=== PATIENT | female | born 1975 | race Caucasian/White ===

== ENCOUNTER 2024-11-26 23:03 | Observation (INO) | payer MEDICARE, SELFPAY ==
[2024-11-26 16:58] VITALS: BP 143/92
[2024-11-26 17:26] LABS: % Basophils 0.4 % (0-2); % Eosinophils 0.6 % (0-6); % Immature Granulocytes 0.5 % (0-0.5); % Lymphocytes 16.4 % (20.5-51.1); % Monocytes 8.4 % (1.7-9.3); % Neutrophils 73.7 % (42.2-75.2); Absolute Eosinophils 0.1 10^3/uL (0-0.7); Absolute Lymphocytes 1.3 10^3/uL (1.2-3.4); Absolute Monocytes 0.7 10^3/uL (0.1-0.6); Absolute Neutrophils 5.8 10^3/uL (1.4-6.5); Hematocrit 35.8 % (37.0-47.0); Hemoglobin 12.3 g/dL (12.0-16.0); Mean Corp Hgb Conc. 34.4 g/dL (33.0-37.0); Mean Corpuscular Hgb 31.1 pg (27.0-31.0); Mean Corpuscular Volume 90.6 fL (81.0-99.0); Mean Platelet Volume 9.3 fL (7.4-10.4); Nucleated Red Blood Cells % 0 %; Platelet Count 273 10^3/uL (130-400); Red Blood Cell Count 3.95 10^6/uL (4.20-5.40); Red Cell Dist. Width 11.7 % (11.5-14.5); White Blood Cell Count 7.9 10^3/uL (4.8-10.8)
[2024-11-26 17:30] LABS: Urine Albumin 1+ (Neg - Trace); Urine Bilirubin Negative (Negative); Urine Character Clear (Clear); Urine Color Yellow; Urine Glucose Negative (Negative); Urine Ketone Negative (Negative); Urine Leukocyte Negative (Negative); Urine Nitrite Negative (Negative); Urine Occult Blood 4+ (Negative); Urine Urobilinogen Negative (Neg - 1+)
[2024-11-26 17:42] LABS: Urine Squamous Cell 0-2 /LPF (Few)
[2024-11-26 17:43] LABS: Urine Bacteria Few (Negative); Urine White Cell 0-2 /HPF (0-5)
[2024-11-26 18:04] LABS: ALT (SGPT) 408 U/L (0-35); AST (SGOT) 617 U/L (14-36); Albumin 4.2 g/dl (3.5-5.0); Alkaline Phosphatase 100 U/L (38-126); Blood Urea Nitrogen 13 mg/dl (7-17); Calcium 10.9 mg/dl (8.4-10.2); Carbon Dioxide 28 mmol/L (22-30); Chloride 102 mmol/L (98-107); Glucose 105 mg/dl (70-99); Lipase 132 U/L (23-300); Potassium 3.8 mmol/L (3.5-5.1); Sodium 136 mmol/L (135-145); Total Bilirubin 1.4 mg/dl (0.2-1.3); eGFR > 60.00
--- NOTE | 2024-11-26 19:40 | ED.GENMED ---
History of Present Illness
General
Chief Complaint: Flank Pain
Source: patient
Exam Limitations: none
Time Seen by Provider: 11/26/24 19:30
Nursing documentation reviewed up to this point in time: agreed with
History of Present Illness
History of Present Illness:
Patient is a 49-year-old female who presents today for evaluation. Patient started last night with pain in the middle of her back which radiates and wraps around to her epigastric area. She does have indigestion and feels very nauseous with this.
She denies any injury but does report it hurts when she walks. She is nauseous but did not vomit. She does have a history of cholecystectomy and reports symptoms feel somewhat similar. She denies any actual shortness of breath. She only drinks
alcohol very occasionally. She does not smoke. No prior history PE DVT. She is not on oral contraceptives or hormone replacement.
Past History
Past History
ED Past Medical History: Other (Interstitial cystitis)
ED Past Surgical History: None
Social History
Tobacco: Non-smoker
Alcohol: None
Drug: None
Personal:
Living: with family
Review of Systems
Review of Systems
Allergies reviewed?: Yes
All Other Systems: ROS reviewed and negative except as documented in HPI and ROS
Constitutional: Reports no symptoms; Denies fever, fatigue or chills
Respiratory: Reports no symptoms
Cardiac: Reports no symptoms
ABD/GI: Reports abdominal pain and nausea; Denies vomiting or diarrhea
: Reports no symptoms
Musculoskeletal: Reports back pain
Skin: Reports no symptoms
Neurological: Reports no symptoms
Psychiatric: Reports no symptoms
Phy Exam
General Physical Exam
General Presentation: no apparent distress
General age: appears stated age
General Skin: warm and dry
General Habitus: normal
General Hydration: appears well hydrated
Cardiovascular Exam
Cardiovascular Exam: regular rate/rhythm, no murmur and normal peripheral pulses
Pulmonary Exam
Pulmonary Exam: lungs clear and no respiratory distress
Gastrointestinal Exam
Gastrointestinal Exam: soft and other (mild upper abd tenderness )
Neurological Exam
Neurological Exam: alert and oriented x3
Musculoskeletal Exam
Musculoskeletal Exam: full ROM
Skin Exam
Skin Exam: normal color and warm/dry
Psychiatric Exam
Psychiatric Exam: normal mood/affect
Course
Orders/Labs/Results
Orders:
Orders
11/26/24 17:01
Electrocardiogram (*1) Urgent
Reason for Study: Abdominal Pain
EKG- Treatment ONCE
11/26/24 17:17
Complete Blood Count/With Diff Urgent
Comprehensive Metabolic Panel Urgent
Lipase Urgent
Urinalysis Reflex To Culture Urgent
Date Specimen was Collected: 11/26/24
Time Specimen was Collected: 17:01
Urine Microscopic Reflex Cult Urgent
11/26/24 18:42
US Abdomen Complete/Upper Urgent
Comment:
Reason For Exam: flank pain elevated AST, ALT
11/26/24 19:50
IV Insert/Care/Rem.- Treatment PRN
0.9% Sodium Chloride 1000 ml [Nss] 1,000 ml IV BOLUS
Ondansetron Injectable [Zofran] 4 mg IV NOW STA
11/26/24 19:51
Ketorolac [Toradol] 15 mg IV NOW STA
Abnormal Lab Results
11/26/24
17:17
RBC 3.95 L 10^6/uL
(4.20-5.40)
Hct 35.8 L %
(37.0-47.0)
MCH 31.1 H pg
(27.0-31.0)
Absolute Monos (auto) 0.7 H 10^3/uL
(0.1-0.6)
Lymphocytes % 16.4 L %
(20.5-51.1)
Glucose 105 H mg/dl
(70-99)
Calcium 10.9 H mg/dl
(8.4-10.2)
Total Bilirubin 1.4 H mg/dl
(0.2-1.3)
AST 617 H* U/L
(14-36)
ALT 408 H U/L
(0-35)
Ur Occult Blood Reflex 4+ A
(Negative)
Urine RBC 3-6 A /HPF
(0-2)
Urine Bacteria (Reflex) Few A
(Negative)
Urine Albumin (Reflex) 1+ A
(Neg - Trace)
11/26/24 17:17
11/26/24 17:17
Vital Signs
Initial and Last Documented VS:
Initial Vital Signs
Temp Pulse Resp BP Pulse Ox
97.5 F 75 18 143/92 99
11/26/24 16:58 11/26/24 16:58 11/26/24 16:58 11/26/24 16:58 11/26/24 16:58
Last Documented Vital Signs
Temp Pulse Resp BP Pulse Ox
97.5 F 75 18 143/92 99
11/26/24 16:58 11/26/24 16:58 11/26/24 16:58 11/26/24 16:58 11/26/24 16:58
Log Preparer consulted with Physician
Log Preparer consulted with physician?: Yes
Name of Physician Consulted: Kennedy
MDM/Problems Addressed
MDM/Problems Addressed:
Patient is a 49-year-old female with previous cholecystectomy who presented to the ER complaining of back pain which wraps around to upper abdomen which started last night associate with nausea. Patient denies any fever chills only very social
alcohol. She is tender throughout the epigastric area minimally. Her white count is normal and she is afebrile however patient with elevated LFTs including an AST of 617 and ALT of 408 with bilirubin of 1.4.
Ultrasound shows no evidence for biliary ductal dilatation and coarsening of hepatic echotexture diffusely. Patient will need to be admitted and likely need MRCP.d/c w/ ED physician
*Radiology
Radiology exam reviewed: radiology read reviewed
*Pulse Oximetry
Patient hypoxic: no
*Critical Care Note
Total Time (30-74mins, 75-104mins- exclusive of procedures): Not Applicable
ED Attending Note
-
Portions of this chart may have been created with voice recognition software.� Occasional wrong word or��sound alike� substitutions may have occurred due to the inherent limitations of voice recognition software.
Discharge Plan
Departure
Patient Disposition: Admit
Date of Disposition: 11/26/24
Time of Disposition: 21:39
Admit to: Med/Surg
Admit to doctor: hospitalist
Presentation/result/management discussed w/ accepting MD/DO: Hospitalist
Patient with high blood pressure during this ER visit?: Yes
Condition: Fair
Covid-19: Not Applicable
Discharge Problem:
Abdominal pain, Elevated LFTs
Prescriptions:
No Action
duloxetine 30 MG capsule,delayed release(DR/EC)
30 mg PO .DAILY-STOPPED 10/04
Patient Comments:
pt reports she original started on 90 mg Cymbalta and gradually decreased to 30mg daily
Referrals:
NONE,* [Family Provider] -
Discharge Date and Time
Print Language: FAROESE
[2024-11-26] MEDS: ZOFRAN 4 MG IV (20:13)
[2024-11-26] MEDS: NSS 1000 IV (20:13)
[2024-11-26] MEDS: TORADOL 15 MG IV (20:14)
--- NOTE | 2024-11-26 22:04 | HPS.HSE ---
Family Physician
-
Family Physician: * NONE
Chief Complaint
-
back pain radiates to upper abdomen
History of Present Illness
Patient is a 49-year-old female with no significant past medical history presented to [facility] ED for evaluation of lower back pain that radiated around flank and to upper abdomen bilaterally. Patient reports waking up last night with
bilateral back pain that this morning after eating cantaloupe with cottage cheese radiated bilaterally around flanks to upper abdomen. She felt she had significant indigestion and took tums but they were ineffective in alleviating discomfort. She
also reports some associated nausea. Patient denies any fever, chills, cough, shortness of breath, chest pain, vomiting, constipation, diarrhea or urinary symptoms.
Medical History
Past Medical History
Past Medical History: Reports None
Past Surgical History: Reports Other
Additional Past Surgical History:
cholecystectomy
Social History
Tobacco: Non-smoker
Alcohol: Occasional
Drug: None
Personal: Single
Living: Alone
Employment: Not Employed
Family History
Family History: Not pertinent
Allergies / Home Medications
Allergies reflects when Allergies were last updated in [employer].
Home Medications with original date entered in [employer]
Allergy/Medication List:
Allergies
Allergy/AdvReac Type Severity Reaction Status Date / Time
NKA - No Known Allergies Allergy Unknown Uncoded 10/08/11 21:21
Home Medications
calcium carbonate (Tums) 200 mg PO DAILYPRN PRN stomach issues 11/26/24
Review of Systems
-
History Source: Patient
Constitutional: Reports No Symptoms
EENT: Reports No Symptoms
Respiratory: Reports No Symptoms
Cardiac: Reports No Symptoms
Abdomen/GI: Reports Abdominal Pain (bilateral lower back pain, radiates to bilateral flanks to upper abdomen) and Nausea
: Reports No Symptoms
Musculoskeletal: Reports Other (bilateral lower back pain, radiates to bilateral flanks to upper abdomen)
Skin: Reports No Symptoms
Neurological: Reports No Symptoms
Endocrine: Reports No Symptoms
Hematologic/Lymphatic: Reports No Symptoms
Psych: Reports No Symptoms
Physical Exam
Vital Signs
Vital Signs
Temp Pulse Resp BP Pulse Ox
97.5 F 75 18 143/92 99
11/26/24 16:58 11/26/24 16:58 11/26/24 16:58 11/26/24 16:58 11/26/24 16:58
Physical Exam
General: Well Developed, Well Nourished, No Apparent Distress, Comfortable and Conversant
HEENT: NormoCephalic, Moist mucous membranes, Atraumatic, [place] Conjunctivae, Nose Appears Normal and Ears Appear Normal
Respiratory: Clear
Cardiac: S1/S2 and Regular Rhythm; No Murmur, Rub or Gallop
Breast: Deferred by me
GI: Soft, Non Distended and Normal Bowel Sounds; No Organomegaly
Rectal: Deferred by Provider
Genito-urinary: Deferred by me
Musculoskeletal: No Clubbing, No Cyanosis and No Edema
Skin: Warm and IV/Catheter Site; No Rash
Neuro: Awake, Alert, AO x 3 and Nonfocal/grossly intact
Psych: Calm and Intact Judgment/Insight
Laboratory Results
-
11/26/24 17:17
11/26/24 17:17
Laboratory Results
Total Bilirubin 1.4 mg/dl (0.2-1.3) H 11/26/24 17:17
AST 617 U/L (14-36) H* 11/26/24 17:17
ALT 408 U/L (0-35) H 11/26/24 17:17
Alkaline Phosphatase 100 U/L (38-126) 11/26/24 17:17
Lipase 132 U/L (23-300) 11/26/24 17:17
Data Reviewed
-
Ultrasound: Report Reviewed by me (Abd: Status post cholecystectomy with no evidence for biliary ductal dilation. Coarsening of hepatic echotexture diffusely, a nonspecific finding suggestive of hepatocellular disease. No evidence for a focal
hepatic lesion. The main portal vein is patent with normal direction of flow. )
Medical Tests (Nuc Med, Echo, EKG etc): Report Reviewed by me (EKG: NORMAL SINUS RHYTHM WITH SINUS ARRHYTHMIA RSR' OR QR PATTERN IN V1 SUGGESTS RIGHT VENTRICULAR CONDUCTION DELAY BORDERLINE ECG)
Lab Data: Labs Reviewed by me (AST 617, ALT 408, Tot Bili 1.4)
Impression/Plan
-
IMPRESSION/PLAN:
#bilateral lower back pain, radiates to bilateral flanks and upper abdomen
AST 617, ALT 408, Tot Bili 1.4
Abd US: Status post cholecystectomy with no evidence for biliary ductal dilation.
Coarsening of hepatic echotexture diffusely, a nonspecific finding suggestive of hepatocellular disease. No evidence for a focal hepatic lesion. The main portal vein is patent with normal direction of flow.
- admit to med/surg
- consult GI
- UDS
- labs: PT/INR, lipid panel, triglycerides, Hepatitis panel
- Clears
- IVF
- supportive care
Code status: full code
DVT prophylaxis: SCDs
--- NOTE | 2024-11-26 22:31 | W.PN.UPDATE ---
Update Note
Progress Note Update
Patient seen conjunction with NALLELY. I agree with of findings on history and physical. I concur with the assessment and plan.
This is a 49-year-old who has a prior prior history of gallbladder disease status postcholecystectomy presenting to the emergency department with acute episode of abdominal back and chest pain associated with nausea but no vomiting.
Patient reported that symptoms began with some mild back pain yesterday. She was able to tolerate it and go to sleep. She thought she might have a urinary tract infection but had no urinary symptoms. Later on in the morning after she had a meal
of cantaloupe she had severe back pain then epigastric pain that was radiating to the bilateral left and right upper quadrants. She had nausea but no vomiting. She denies any diarrhea. She reports she has always had some tenderness of the right
upper quadrant ever since her surgery. She denies any particular worsening. She denies any jaundice. Patient denies any recent episodes of weight loss or weight gain. Besides a cantaloupe she has no usual meal. She denies any sick contacts.
She denies any alcohol use. She denies any medications except for Tums. She denies Tylenol or NSAID use. No history of drug use.
In the emergency department she was febrile, hemodynamically stable with a blood pressure of 143/90 and a pulse of 75. She was satting 90% on room air. CBC electrolyte BUN/creatinine were all normal. Total bilirubin was 1.4, AST was elevated at
617 and ALT 408. Alk phos was normal. Lipase was normal. She had a right upper quadrant ultrasound which shows status post cholecystectomy, no biliary ductal dilatation. Some echogenicity and abnormal liver texture. She had no observable stone
in the biliary tree. There is mild liver enlargement.
Assessment and plan
Acute transaminitis without clear evidence of cholestatic pattern. This transaminitis appeared to be hepatocellular injury pattern possibly secondary to a viral acute hepatitis versus nonverbal injury/Infarct or Medication Related. She Is Not on
Any Medications. Currently well-appearing and pain tolerable.
- admit to med/surg
- trend lfts, check inr
- check acute hepatitis panel
- check lipid panel
- check lactate level in am
- mrcp
- clear liquid diet for now
- pain control, antiemetics and iv fluids
- u/a is negative
- GI consultation
DVT PPx - SCDs
Code status - Full Code
[2024-11-26 23:38] VITALS: BP 117/71
[2024-11-27] MEDS: NSS 1000 IV ×2 (04:48→16:55)
[2024-11-27 04:49] VITALS: BMI 23.3
[2024-11-27 05:11] LABS: Amphetamines Negative (Negative); Barbiturates Negative (Negative); Benzodiazepines Negative (Negative); Buprenorphine Negative (Negative); Cocaine Negative (Negative); Marijuana Negative (Negative); Methadone Negative (Negative); Methamphetamines Negative (Negative); Opiates Negative (Negative); Phencyclidine Negative (Negative); Tricyclic Antidepressants Negative (Negative)
[2024-11-27 05:16] LABS: Hematocrit 34.6 % (37.0-47.0); Mean Corp Hgb Conc. 34.7 g/dL (33.0-37.0); Mean Corpuscular Hgb 31.5 pg (27.0-31.0); Mean Corpuscular Volume 90.8 fL (81.0-99.0); Mean Platelet Volume 9.7 fL (7.4-10.4); Platelet Count 245 10^3/uL (130-400); Red Blood Cell Count 3.81 10^6/uL (4.20-5.40); Red Cell Dist. Width 11.8 % (11.5-14.5); White Blood Cell Count 4.4 10^3/uL (4.8-10.8)
[2024-11-27 05:26] LABS: Blood Urea Nitrogen 13 mg/dl (7-17); Calcium 9.6 mg/dl (8.4-10.2); Carbon Dioxide 25 mmol/L (22-30); Chloride 109 mmol/L (98-107); Estimated Creatinine Clearance 80 ml/min; Glucose 90 mg/dl (70-99); HDL Cholesterol 80 mg/dl; LDL Cholesterol, Calculated 106 mg/dl; Sodium 139 mmol/L (135-145); Total Cholesterol 199 mg/dl (50-199); Triglyceride 67 mg/dl (10-149); Triglycerides 67 mg/dl (10-149); Very Low Density Lipoprotein 13 mg/dl (0-30); eGFR > 60.00
[2024-11-27 05:30] LABS: INR 1.03; PT 13.8 Sec (11.4-14.6)
[2024-11-27 05:58] LABS: Hepatitis B Surface Antigen Negative (Negative)
[2024-11-27 06:04] LABS: Hepatitis A IgM Antibody Negative (Negative); Hepatitis B Core Ab, IgM Negative (Negative)
[2024-11-27 06:15] LABS: Hepatitis A Antibody, Total Negative (Negative); Hepatitis B Core Ab, Total Negative (Negative); Hepatitis B Surface Antibody Negative; Hepatitis C Antibody Negative (Negative)
[2024-11-27 08:08] VITALS: BP 114/76
[2024-11-27 08:40] VITALS: BP 111/64; BMI 23.1
--- NOTE | 2024-11-27 09:06 | W.PN.HOSP.TC ---
Today's Communication/Plan
-
f/u LFT
MRI/MRCP
GI eval
continue CL
Assessment / Plan
Assessment / Plan
RUQ US
Status post cholecystectomy with no evidence for biliary ductal dilation.
Coarsening of hepatic echotexture diffusely, a nonspecific finding suggestive of hepatocellular disease. No evidence for a focal hepatic lesion. The main portal vein is patent with normal direction of flow.
1. Acute transaminitis
H/o cholecystectomy in
- ALT 408 AST 617 Tbilli 1.4 ALP 100
- US abd finding as above
- Hep panel / UDS negative. No significant alcohol use.
- Not on any hepato-toxic medication
- Check MRI / MRCP
- symptomatic care for nausea/abd pain
- Maintain on IVF
- GI evaluation requested
2. Hypercalcemia
- resolved with IVF
SCD
Full code
Total time spent : 52 mins
Anticipated Discharge: 24 - 48 hours
Subjective/Interval History
-
Date of Service: November 27, 2024
Resting comfortably in bed
Denies abdominal pain/nausea/vomiting
No other reported problem
Objective Data
-
Labs:
Laboratory Results
11/27/24 11/27/24
04:42 08:16
WBC 4.4 L
Hgb 12.0
Hct 34.6 L
Plt Count 245
PT 13.8
INR 1.03
Sodium 139
Potassium 4.0
Chloride 109 H
Carbon Dioxide 25
BUN 13
Creatinine 0.7
Glucose 90
Calcium 9.6
Total Bilirubin Pending Cancelled
AST Pending Cancelled
ALT Pending Cancelled
Alkaline Phosphatase Pending Cancelled
Vital Signs:
Vital Signs
Temp Pulse Resp BP Pulse Ox
98.3 F 66 17 111/64 99
11/27/24 08:40 11/27/24 08:40 11/27/24 08:40 11/27/24 08:40 11/27/24 08:40
Review of Systems
-
Respiratory: Reports No Symptoms
Cardiac: Reports No Symptoms
Abdomen/GI: Reports No Symptoms
Physical Exam
-
General: No Apparent Distress and Comfortable
HEENT: Negative Oxygen
Respiratory: Clear to Auscultation
Cardiac: Regular Rhythm and S1/S2; Negative Murmur or Rub
GI: Soft, Nondistended, Normal Bowel Sounds and Tender (minimal in RUQ)
Musculoskeletal: No Edema
Neuro: Awake, Alert, Oriented, No Motor Deficits and Nonfocal/Grossly Intact
Psych: Calm
--- NOTE | 2024-11-27 09:40 | CON.GI ---
Addendum entered and electronically signed by Joy Michele Do, MD 11/27/24 14:47:
I saw and examined the patient.
The SCIENCE TECHNICIAN's note was reviewed and I agree with the note.
Comment: Alice is a 49yo W with h/o interstitial cystitis who presents with back radiating to epigastric abd pain. No clear trigger. Denies ETOH or acetaminophen use. Vitals stable mildly TTP, soft. Labs review LFTs elevated mostly AST/ALT.
Imaging abd US reviewed Status post cholecystectomy with no evidence for biliary ductal dilation. Coarsening of hepatic echotexture diffusely, a nonspecific finding suggestive of hepatocellular disease. No evidence for a focal hepatic lesion. The
main portal vein is patent with normal direction of flow.
Impression
- Elevated LFT
Hepatocellular pattern- ddx includes infectious such as mono. Other choledocholithiasis
- Interstitial cystitis
- H/o pituitary adenoma
Recommendations
- Viral hepatitis serologies negative for Hep A/B/C
- Check mono, MERCEDES and iron panel for hemochromatosis
- MRI MRCP
- Ok for diet post MRI
- Avoid hepatoxins
- Serial LFTs
Will follow with you
Original Note:
Consultation
-
Date/Time Consultation Requested: 11/27/24 0730
Date/Time Consultation Performed: 11/27/24 1030
Requesting Provider: Darline Richmond MD
Performing Provider: NALLELY Robles, Joy Maya MD
Reason for Consultation: back/epigastric pain
Medical History
Chief Complaint / HPI
Chief Complaint: back/epigastric
History of Present Illness:
Pt is a 49yo presents with hx sidra 9 years ago with wt changes in , pituitary adenoma noted in her 20's without resection, intestinal cystitis with presents with onset of post prandial lower back pain with radiation to flank area. On
admission noted with bili 1.4, AST 617, ALT 408, alk phos 100 and lipase 132. US completed with finding of s/p sidra no CBD dilation, coarsening echotexture non specific hepatocellular disease. no lesion with portal vein patent, pancreas normal.
Hepatitis and tox screen panel neg. Pt denies any prior hx liver problems. No current medication or supplement use. No ETOH or drug use. Old Tattoo from age 17. + family hx father with cirrhosis but admits to heavy ETOH and supplement use.
Pt otherwise admits to increased GERD, nausea, dark urine with abdominal pain but denies joint pains, cough, fever, dysphagia, vomiting, diarrhea, constipation, or rectal bleeding. No hx EGD or colonoscopy in past.
Past Medical History
Past Medical History: Other (interstitial cystitis, pituitary adenoma medically followed years ago)
Past Surgical History: Cholecystectomy
Social History
Tobacco: Former Smoker (quit 30's)
Alcohol: None
Drug: None
Personal: Other (finacee )
Living: Alone
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
Family History
Family History: Other (father ? cirrhosis with hx ETOH use )
Allergies / Home Medications
Allergy/AdvReac Type Severity Reaction Status Date / Time
NKA - No Known Allergies Allergy Unknown Uncoded 10/08/11 21:21
�Medication �Instructions �Recorded
calcium carbonate (Tums) 200 mg PO DAILYPRN PRN stomach 11/26/24
issues
Review of Systems
-
History Source: Patient
Constitutional: Reports No Symptoms
EENT: Reports No Symptoms
Respiratory: Reports No Symptoms
Cardiac: Reports No Symptoms
Abdomen/GI: Reports Abdominal Pain, Nausea and Other (increased GERD)
: Reports Dark Urine
Musculoskeletal: Reports No Symptoms
Skin: Reports No Symptoms
Neurological: Reports No Symptoms
Endocrine: Reports No Symptoms
Hematologic/Lymphatic: Reports No Symptoms
Vital Signs
Temp Pulse Resp BP Pulse Ox
98.3 F 66 17 111/64 99
11/27/24 08:40 11/27/24 08:40 11/27/24 08:40 11/27/24 08:40 11/27/24 08:40
Physical Exam
Exam
General: Well Developed, Well Nourished and No Apparent Distress
HEENT: Other (minimal jaundice )
Respiratory: Clear
Cardiac: Regular Rhythm
GI: Soft, Non Distended and Tender (epigastric )
Musculoskeletal: No Clubbing and No Cyanosis
Skin: Warm and Dry
Neuro: Awake, Alert and AO x 3
Psych: Calm
Results
WBC 4.4 10^3/uL (4.8-10.8) L 11/27/24 04:42
Hgb 12.0 g/dL (12.0-16.0) 11/27/24 04:42
Hct 34.6 % (37.0-47.0) L 11/27/24 04:42
MCV 90.8 fL (81.0-99.0) 11/27/24 04:42
Plt Count 245 10^3/uL (130-400) 11/27/24 04:42
Absolute Neuts (auto) 5.8 10^3/uL (1.4-6.5) 11/26/24 17:17
PT 13.8 Sec (11.4-14.6) 11/27/24 04:42
INR 1.03 11/27/24 04:42
Sodium 139 mmol/L (135-145) 11/27/24 04:42
Potassium 4.0 mmol/L (3.5-5.1) 11/27/24 04:42
Chloride 109 mmol/L (98-107) H 11/27/24 04:42
Carbon Dioxide 25 mmol/L (22-30) 11/27/24 04:42
BUN 13 mg/dl (7-17) 11/27/24 04:42
Creatinine 0.7 mg/dL (0.6-1.0) 11/27/24 04:42
Calcium 9.6 mg/dl (8.4-10.2) 11/27/24 04:42
Total Bilirubin Cancelled 11/27/24 08:16
AST Cancelled 11/27/24 08:16
ALT Cancelled 11/27/24 08:16
Alkaline Phosphatase Cancelled 11/27/24 08:16
Lipase 132 U/L (23-300) 11/26/24 17:17
Hepatitis A IgM Ab Negative (Negative) 11/27/24 04:42
Hepatitis A Ab Total Negative (Negative) 11/27/24 04:42
Hep Bs Antibody Negative 11/27/24 04:42
Hep B Core Total Ab Negative (Negative) 11/27/24 04:42
Hep B Core IgM Ab Negative (Negative) 11/27/24 04:42
Hepatitis C Antibody Negative (Negative) 11/27/24 04:42
Diagnostic Image Results:
11/26/24 US abdomen
Status post cholecystectomy with no evidence for biliary ductal dilation.
Coarsening of hepatic echotexture diffusely, a nonspecific finding suggestive of hepatocellular disease. No evidence for a focal hepatic lesion. The main portal vein is patent with normal direction of flow.
Prior GI Procedures:
EGD: none
Colonoscopy: none
Assessment / Plan
-
Pt is a 49yo presents with hx sidra 9 years ago with wt changes in , pituitary adenoma noted in her 20's without resection, intestinal cystitis with presents with onset of post prandial lower back pain with radiation to flank area. On
admission noted with bili 1.4, AST 617, ALT 408, alk phos 100 and lipase 132. US completed with finding of s/p sidra no CBD dilation, coarsening echotexture non specific hepatocellular disease. no lesion with portal vein patent, pancreas normal.
Hepatitis and tox screen panel neg. Pt denies any prior hx liver problems. No current medication or supplement use. No ETOH or drug use. Old Tattoo from age 17. + family hx father with cirrhosis but admits to heavy ETOH and supplement use.
-back/epigastric pain
-increased LFT's
-coarsening echotexture of liver on US
other med problems:
-hx sidra 9 years ago
-pituitary adenoma
-interstitial cystitis
-family hx ? cirrhosis in father with hx ETOH use
PLAN:
Etiology of abdominal pain with rise in LFT's related to CBD stone (though not noted on US), ? passed stone, vs other underlying liver issues -viral syndrome/autoimmune etc.
no medication, supplement or ETOH use
hepatitis panel neg, tox screen neg.
check MRI/MRCP
add MERCEDES, AMA, iron studies
clear diet advance as tolerated to low fat
trend LFT's
if MRI neg and feeling improved cont to advance diet-- reviewed with patient would follow LFT's til normal. If not normalized would proceed with further serology work up
-
-
Thank you for consultation and allowing me to participate in the patient's care. Please call the [employer] sales consultant GI physician during the after hours with any questions or concerns.
[2024-11-27 09:45] LABS: ALT (SGPT) 623 U/L (0-35); AST (SGOT) 619 U/L (14-36); Albumin 3.5 g/dl (3.5-5.0); Alkaline Phosphatase 106 U/L (38-126); Direct Bilirubin 0.6 mg/dl (0.0-0.4); Total Bilirubin 1.6 mg/dl (0.2-1.3); Total Protein 6.1 g/dl (6.3-8.2)
--- NOTE | 2024-11-27 11:13 | CM ---
Patient seen beside.
Patient lives alone in a 1st floor apartment, sometimes SO stays and son who is at college.
patient independent prior to admission without assistive devices.
Patient drives, currently not working.
Patient has not had VN.
Prefers [facility] [place]
Does not have a PCP and not interested in information, stating she probably would not go.
Observation form completed.
Plan: home no needs.
[2024-11-27] MEDS: TORADOL 15 MG IV (16:56)
[2024-11-27 17:00] VITALS: BP 110/74
[2024-11-27 23:20] VITALS: BP 100/56
--- NOTE | 2024-11-28 02:40 | DOWNTIME ---
There was a [employer] Client Substation Operator Conversion Downtime on 11/28/2024 from 0100 to 11/28/2023 at 0235 . Downtime documentation of patient's care, including medication administrations, has been reconciled in the electronic record per guidelines. Refer to the
patient's paper chart under the miscellaneous tab to see printed paper medication records and downtime forms.
[2024-11-28] MEDS: NSS 1000 IV (05:28)
--- NOTE | 2024-11-28 07:13 | W.PN.GI.CBS2 ---
Addendum entered and electronically signed by NALLELY Bourne 11/28/24 09:33:
Liver function improving-- reviewed with Dr. Wilkinson for discharge
Original Note:
Today's Communication / Plan
-
Etiology of abdominal pain with rise in LFT's related to CBD stone (though not noted on US), ? passed stone, vs other underlying liver issues -viral syndrome/autoimmune etc.
no medication, supplement or ETOH use
hepatitis panel neg, tox screen neg.
MRI with mild biliary dilation/panc cyst-- reviewed results with patient
mono, MERCEDES, AMA, iron studies pending
cont low fat
trend LFT's-- AM labs still pending
OP follow up to review labs and ensure normalization of LFT's
labs slip left for 1-2 week repeat LFT's
OP follow up to review labs work and ensure LFT's improving
will need repeat MRI 1 yeas with panc cyst
reviewed with patient for establishing care with PCP provider
pt asking for discharge today -- discussed ensuring she can tolerate diet and await repeat LFT's
Assessment / Plan
-
Pt is a 49yo presents with hx sidra 9 years ago with wt changes in , pituitary adenoma noted in her 20's without resection, intestinal cystitis with presents with onset of post prandial lower back pain with radiation to flank area. On
admission noted with bili 1.4, AST 617, ALT 408, alk phos 100 and lipase 132. US completed with finding of s/p sidra no CBD dilation, coarsening echotexture non specific hepatocellular disease. no lesion with portal vein patent, pancreas normal.
Hepatitis and tox screen panel neg. Pt denies any prior hx liver problems. No current medication or supplement use. No ETOH or drug use. Old Tattoo from age 17. + family hx father with cirrhosis but admits to heavy ETOH and supplement use.
11/27/24 MR Abdomen W/o & W Contrast
1. Mild biliary dilatation without evidence for choledocholithiasis or obstructing mass.
2. Previous cholecystectomy.
3. 2.7 mm pancreatic cyst.
4. 2.5 cm right ovarian cyst.
-back/epigastric pain
-increased LFT's
-coarsening echotexture of liver on US
-mild biliary dilatation on MRI
-2.7mm pancreatic cyst
-2.5 cm right ovarian cyst
other med problems:
-hx sidra 9 years ago
-pituitary adenoma
-interstitial cystitis
-family hx ? cirrhosis in father with hx ETOH use
PLAN:
Etiology of abdominal pain with rise in LFT's related to CBD stone (though not noted on US), ? passed stone, vs other underlying liver issues -viral syndrome/autoimmune etc.
no medication, supplement or ETOH use
hepatitis panel neg, tox screen neg.
MRI with mild biliary dilation/panc cyst-- reviewed results with patient
mono, MERCEDES, AMA, iron studies pending
cont low fat
trend LFT's-- AM labs still pending
OP follow up to review labs and ensure normalization of LFT's
labs slip left for 1-2 week repeat LFT's
OP follow up to review labs work and ensure LFT's improving
will need repeat MRI 1 yeas with panc cyst
reviewed with patient for establishing care with PCP provider
pt asking for discharge today - discussed ensuring she can tolerate diet and await repeat LFT's
Subjective
Subjective
Date of Service: November 28, 2024
11/27 low fat diet tolerated mac and cheese last PM then slight nausea with bagel this am but feeling better and asking for discharge
Objective
Data Reviewed
Laboratory Data:
Laboratory Results
PT 13.8 Sec (11.4-14.6) 11/27/24 04:42
INR 1.03 11/27/24 04:42
Total Bilirubin Cancelled 11/27/24 08:16
AST Cancelled 11/27/24 08:16
ALT Cancelled 11/27/24 08:16
Alkaline Phosphatase Cancelled 11/27/24 08:16
Lipase 132 U/L (23-300) 11/26/24 17:17
Vital Signs and I&O:
Vital Signs
Temp Pulse Resp BP Pulse Ox
98.1 F 66 16 100/56 97
11/27/24 23:20 11/27/24 23:20 11/27/24 23:20 11/27/24 23:20 11/27/24 23:20
I&O
11/27/24 11/28/24 11/29/24
06:59 06:59 06:59
Intake Total 360 / 360
Balance 360 / 360
Physical Exam
Physical Exam
HEENT: Anicteric and Moist mucous membranes
Cardiology: Normal Sinus Rhythm
Pulmonary: Clear
GI: Soft, Non Distended and Tender (minimal )
Extremities: No Edema
Neuro: Non Focal
[2024-11-28 07:50] VITALS: BP 112/68
[2024-11-28 08:01] LABS: Hematocrit 33.2 % (37.0-47.0); Hemoglobin 11.2 g/dL (12.0-16.0); Mean Corp Hgb Conc. 33.7 g/dL (33.0-37.0); Mean Corpuscular Hgb 31.2 pg (27.0-31.0); Mean Corpuscular Volume 92.5 fL (81.0-99.0); Mean Platelet Volume 9.7 fL (7.4-10.4); Platelet Count 254 10^3/uL (130-400); Red Blood Cell Count 3.59 10^6/uL (4.20-5.40); Red Cell Dist. Width 11.8 % (11.5-14.5); White Blood Cell Count 3.5 10^3/uL (4.8-10.8)
[2024-11-28 08:47] LABS: ALT (SGPT) 435 U/L (0-35); AST (SGOT) 219 U/L (14-36); Albumin 3.7 g/dl (3.5-5.0); Alkaline Phosphatase 113 U/L (38-126); Blood Urea Nitrogen 13 mg/dl (7-17); Calcium 8.6 mg/dl (8.4-10.2); Carbon Dioxide 23 mmol/L (22-30); Chloride 107 mmol/L (98-107); Estimated Creatinine Clearance 80 ml/min; Glucose 86 mg/dl (70-99); Iron 94 ug/dl (37-170); Sodium 136 mmol/L (135-145); eGFR > 60.00
[2024-11-28 09:06] LABS: Ferritin 89.9 ng/ml (6.24-137)
[2024-11-28 09:17] LABS: Monotest Positive (Negative)
--- NOTE | 2024-11-28 11:06 | CM ---
CM reviewed chart and noted dc order
Bedside meeting with pt- no dc needs noted
She has already called for ride home
Pt without PCP- offered resident clinic info
Pt accepted flyer
Discharge Disposition- home, no needs, family transport
--- NOTE | 2024-11-28 11:38 | W.PN.HOSP.TC ---
Today's Communication/Plan
-
d/c home
Assessment / Plan
Assessment / Plan
RUQ US
Status post cholecystectomy with no evidence for biliary ductal dilation.
Coarsening of hepatic echotexture diffusely, a nonspecific finding suggestive of hepatocellular disease. No evidence for a focal hepatic lesion. The main portal vein is patent with normal direction of flow.
MRI abd
1. Mild biliary dilatation without evidence for choledocholithiasis or obstructing mass.
2. Previous cholecystectomy.
3. 2.7 mm pancreatic cyst.
4. 2.5 cm right ovarian cyst.

1. Acute transaminitis - Improving
Infectious mononucleosis
H/o cholecystectomy in
- ALT 408 AST 617 Tbilli 1.4 ALP 100 , trending down.
- US abd finding as above
- Hep panel / UDS negative. No significant alcohol use.
- Not on any hepato-toxic medication
- MRI/MRCP normal
- [place] screen positive
- Repeat LFT outpatient
2. Hypercalcemia
- resolved with IVF
3. Pancreatic cyst
- GI recommended f/u in office with repeat imaging in 1 year
SCD
Full code
More than 30 minutes spent in discharge including
Final examination of the patient
Summarizing hospital stay
Instructions for continuing care to all relevant caregivers
Preparation of discharge records, prescriptions, and referral forms
Total time spent (in minutes): 38 mins
Anticipated Discharge: Today
Subjective/Interval History
-
Date of Service: November 28, 2024
no complains overnight
Objective Data
-
Labs:
Laboratory Results
11/28/24
07:30
WBC 3.5 L
Hgb 11.2 L
Hct 33.2 L
Plt Count 254
Sodium 136
Potassium 4.0
Chloride 107
Carbon Dioxide 23
BUN 13
Creatinine 0.7
Glucose 86
Calcium 8.6
Total Bilirubin 1.0
AST 219 H
ALT 435 H
Alkaline Phosphatase 113
Vital Signs:
Vital Signs
Temp Pulse Resp BP Pulse Ox
98.2 F 66 17 112/68 100
11/28/24 07:50 11/28/24 07:50 11/28/24 07:50 11/28/24 07:50 11/28/24 07:50
I&O
11/27/24 11/28/24 11/29/24
06:59 06:59 06:59
Intake Total 360 / 360
Balance 360 / 360
Review of Systems
-
Respiratory: Reports No Symptoms
Cardiac: Reports No Symptoms
Abdomen/GI: Reports No Symptoms
Physical Exam
-
General: No Apparent Distress
HEENT: Negative Oxygen
Neuro: Awake, Alert, Oriented and No Motor Deficits
--- NOTE | 2024-11-29 08:13 | W.DCSUMMARY ---
Discharge Summary
Discharge Data
Date of Admission: 11/26/24
Date of Discharge: 11/28/24
-
Pending Results: No
Hospital Course
Discharging Physician : Dr Abdias Wilkinson
Disposition : To home
Primary care physician : Unknown
Principal Discharge diagnosis :
Acute transaminitis from infectious mononucleosis
Pancreatic cyst
Chronic Discharge diagnosis :
History of cholecystectomy
Hospital Course :
Patient is a 49-year-old female with no mentioned past medical history came to ER with lower back pain radiating to both flank. Patient had some reported reflux and associated nausea as well. Initially patient was worried about kidney stone/UTI
although workup in ER showing patient having acute transaminitis. An ultrasound of liver gallbladder showing postoperative normal dilated bile ducts. GI was involved in care and patient had a follow-up MRI MRCP which did not show any
choledocholithiasis. Further serological workup test sent for autoimmune and viral hepatitis out of which patient was found to be infectious mononucleosis positive. Patient LFT improved rapidly without any further treatment. At discharge patient
was provided prescription for repeat LFT and 2 weeks.
Patient also was incidentally found to having pancreatic cyst on MRI and was recommended to having repeat imaging in 1 year with GI office
Important imaging findings :
None
Procedure findings :
None
Discharge Plan
-
Patient Disposition: Home (Routine Discharge)
Discharge Diagnosis/Procedures: Transaminases from mononucleosis
Condition: Fair
Diet: Regular
Activity: As tolerated
Driving Restrictions: As prior to admission
Bathing Restrictions: OK to Shower
Blood Work: repeat liver function 1-2 week -- slip given to patient
Others Tests: will need repeat MRI in 1 years with pancreatic cyst. Follow up with PCP or GI for slip for testing
Referrals:
Joy aMya MD [Active] - (follow up wit GI to review liver testing and ensure liver functions improved. If liver function not normalized will need further testing. Will need repeat MRI in 1 year to follow up on pancreatic cyst )
NONE,* [Family Provider] -
Prescriptions:
Continued
calcium carbonate [Tums] 200 mg calcium (500 mg) Tablet,Chewable
200 mg PO DAILYPRN PRN (Reason: stomach issues)
Discharge Orders:
Discharge Patient (As Directed); Ordered 11/28/24
Ordered By: Abdias Wilkinson
Discharge Date and Time
Discharge Date/Time: 11/28/24 11:00
Print Language: MALTESE
[2024-11-30 01:30] LABS: Mitochondrial M2 Ab, IgG 5.9 Units (0.0-24.9)
[2024-11-30 01:45] LABS: ANA, IgG Reflex to HEp-2 None Detected (None Detected)
== END 2024-11-28 11:00 | disposition home or self-care (01) ==
LOC: 1 ACUTE 23:03
PROVIDERS: Emergency Medicine; Nurse Practitioner Family; ADMITTING PHYSICIAN Internal Medicine; ATTENDING PHYSICIAN Hospitalist; CONSULT PHYSICIAN Internal Medicine Gastroenterology; EMERGENCY PHYSICIAN Emergency Medicine
DX: B27.90 Infectious mononucleosis, unspecified without complication (principal); R11.0 Nausea; Z90.49 Acquired absence of other specified parts of digestive tract; N30.10 Interstitial cystitis (chronic) without hematuria; Z87.891 Personal history of nicotine dependence; R74.01 Elevation of levels of liver transaminase levels; E83.52 Hypercalcemia; K86.2 Cyst of pancreas; N83.201 Unspecified ovarian cyst, right side; D35.2 Benign neoplasm of pituitary gland; Z83.79 Family history of other diseases of the digestive system; K21.9 Gastro-esophageal reflux disease without esophagitis; R10.13 Epigastric pain; M54.9 Dorsalgia, unspecified
CPT/HCPCS: 74183; 76700; 80053; 80061; 80306; 81003; 81015; 82248; 82728; 83540; 83690; 84478; 85025; 85027; 85610; 86038; 86308; 86381; 86704; 86705; 86706; 86708; 86709; 86803; 87340; 93005; 96361; 96374; 96375; 99285; A9575; G0378

== ENCOUNTER 2024-12-13 13:00 | Emergency (ER) | payer MEDICARE, SELFPAY ==
[2024-12-13] VITALS (7 sets, daily range): BP systolic 105–127; BP diastolic 67–83; BMI 21.4
[2024-12-13 13:45] LABS: % Basophils 0.9 % (0-2); % Eosinophils 1.6 % (0-6); % Immature Granulocytes 0.3 % (0-0.5); % Lymphocytes 30.7 % (20.5-51.1); % Monocytes 8.3 % (1.7-9.3); % Neutrophils 58.2 % (42.2-75.2); Absolute Basophils 0.1 10^3/uL (0-0.2); Absolute Eosinophils 0.1 10^3/uL (0-0.7); Absolute Lymphocytes 2.1 10^3/uL (1.2-3.4); Absolute Monocytes 0.6 10^3/uL (0.1-0.6); Hematocrit 36.9 % (37.0-47.0); Hemoglobin 12.9 g/dL (12.0-16.0); Mean Corpuscular Hgb 31.7 pg (27.0-31.0); Mean Corpuscular Volume 90.7 fL (81.0-99.0); Mean Platelet Volume 9.7 fL (7.4-10.4); Nucleated Red Blood Cells % 0 %; Platelet Count 274 10^3/uL (130-400); Red Blood Cell Count 4.07 10^6/uL (4.20-5.40); Red Cell Dist. Width 11.5 % (11.5-14.5); White Blood Cell Count 6.8 10^3/uL (4.8-10.8)
[2024-12-13 13:48] LABS: Urine Albumin Negative (Neg - Trace); Urine Bilirubin Negative (Negative); Urine Character Clear (Clear); Urine Color Yellow; Urine Glucose Negative (Negative); Urine Ketone Negative (Negative); Urine Leukocyte 1+ (Negative); Urine Nitrite Positive (Negative); Urine Occult Blood 4+ (Negative); Urine Urobilinogen Negative (Neg - 1+)
[2024-12-13 13:57] LABS: HCG, Serum Qualitative Screen Negative
[2024-12-13 14:03] LABS: ALT (SGPT) 48 U/L (0-35); AST (SGOT) 34 U/L (14-36); Albumin 4.4 g/dl (3.5-5.0); Alkaline Phosphatase 68 U/L (38-126); Blood Urea Nitrogen 23 mg/dl (7-17); Calcium 9.9 mg/dl (8.4-10.2); Carbon Dioxide 25 mmol/L (22-30); Chloride 102 mmol/L (98-107); Glucose 102 mg/dl (70-99); Lipase 166 U/L (23-300); Potassium 4.1 mmol/L (3.5-5.1); Sodium 135 mmol/L (135-145); Total Bilirubin 0.6 mg/dl (0.2-1.3); Total Protein 7.1 g/dl (6.3-8.2); eGFR > 60.00
[2024-12-13 14:41] LABS: Urine Squamous Cell 16-20 /LPF (Few)
[2024-12-13 14:42] LABS: Urine Bacteria Many (Negative)
--- NOTE | 2024-12-13 15:22 | ED.GENMED ---
History of Present Illness
General
Chief Complaint: Breathing Problem
Source: patient
Exam Limitations: none
Time Seen by Provider: 12/13/24 15:08
Nursing documentation reviewed up to this point in time: agreed with
History of Present Illness
History of Present Illness:
Patient to ED wt complaint of SOB, sensation of swelling to upper abdomen that wraps around to back. SHe was admitted here on 11/26 with upper abdominal symptoms. Liver enzymes were elevated, MRI without evidence of stones. Barnes test resulted
pos. States this feels the same. The difference today is that she is feeling SOB with talking, stair climbing. No chest pain. She called GI and was advised by office to come to ED to r/o PE. No prior history of PE. No chest pain, no cough.
Denies fever/chills. No leg swelling or pain. Pulse ox 100% RA, HR 67. Brought self to ED for eval.
Past History
Past History
ED Past Medical History: Other (Interstitial cystitis)
ED Past Surgical History: Cholecystectomy
Social History
Tobacco: Non-smoker
Alcohol: Occasional
Drug: None
Personal:
Living: with family
Review of Systems
Review of Systems
Allergies reviewed?: Yes
All Other Systems: ROS reviewed and negative except as documented in HPI and ROS
Constitutional: Reports no symptoms
EENT: Reports no symptoms
Respiratory: Reports trouble breathing (CORREA)
Cardiac: Reports no symptoms
ABD/GI: Reports other (Sensation of upper abd swelling that wraps around to back. MIld upper abd. pain)
: Reports no symptoms
Musculoskeletal: Reports no symptoms
Skin: Reports no symptoms
Neurological: Reports no symptoms
Psychiatric: Reports no symptoms
Phy Exam
General Physical Exam
General Presentation: well appearing and no apparent distress
General age: appears stated age
General Skin: warm and dry
General Habitus: normal
General Mental: alert
General Hydration: appears well hydrated
Cardiovascular Exam
Cardiovascular Exam: regular rate/rhythm and no edema
Pulmonary Exam
Pulmonary Exam: lungs clear, no respiratory distress, chest non tender and no cough
Gastrointestinal Exam
Gastrointestinal Exam: normal bowel sounds, soft, no organomegaly, non distended and no cva tenderness
Palpation: left upper quadrant: Minimal tenderness, left lower quadrant: No tenderness, right upper quadrant: Minimal tenderness and right lower quadrant: No tenderness
Musculoskeletal Exam
Musculoskeletal Exam: full ROM and neuro vasc intact
Skin Exam
Skin Exam: normal color, warm/dry and no rash
Psychiatric Exam
Psychiatric Exam: normal mood/affect
Scores
Heart Failure Risk
Heart Failure Risk Score: Not Applicable
Course
Orders/Labs/Results
Orders:
Orders
12/13/24 13:02
Electrocardiogram (*1) Urgent
Reason for Study: Shortness of Breath
EKG- Treatment ONCE
12/13/24 13:15
Test Result ONCE
12/13/24 13:30
Complete Blood Count/With Diff Urgent
Comprehensive Metabolic Panel Urgent
HCG, Serum Qualitative Screen Urgent
Lipase Urgent
Urinalysis Reflex To Culture Urgent
Date Specimen was Collected: 12/13/24
Time Specimen was Collected: 13:15
Urine Microscopic Reflex Cult Urgent
Urine Culture Urgent
FILIPPO Source: U
Specimen Description:
Date Specimen was Collected: 12/13/24
Time Specimen was Collected: 13:15
12/13/24 15:17
US Abdomen Complete/Upper Urgent
Comment:
Reason For Exam: pain, swelling
12/13/24 16:52
D-Dimer Urgent
Abnormal Lab Results
12/13/24
13:30
RBC 4.07 L 10^6/uL
(4.20-5.40)
Hct 36.9 L %
(37.0-47.0)
MCH 31.7 H pg
(27.0-31.0)
BUN 23 H mg/dl
(7-17)
Glucose 102 H mg/dl
(70-99)
ALT 48 H U/L
(0-35)
Ur Occult Blood Reflex 4+ A
(Negative)
Urine Nitrite (Reflex) Positive A
(Negative)
Leukocyte Esterase Rfl 1+ A
(Negative)
Urine RBC 3-6 A /HPF
(0-2)
Urine WBC (Reflex) 11-15 A /HPF
(0-5)
Urine Bacteria (Reflex) Many A
(Negative)
12/13/24 13:30
12/13/24 13:30
Vital Signs
Initial and Last Documented VS:
Initial Vital Signs
Temp Pulse Resp BP Pulse Ox
97.8 F 82 16 127/82 98
12/13/24 13:12 12/13/24 13:12 12/13/24 13:12 12/13/24 13:12 12/13/24 13:12
Last Documented Vital Signs
Temp Pulse Resp BP Pulse Ox
98.5 F 64 20 120/72 100
12/13/24 14:50 12/13/24 15:30 12/13/24 14:50 12/13/24 16:45 12/13/24 15:30
*Radiology
Radiology exam reviewed: radiology read reviewed
*Pulse Oximetry
Patient hypoxic: no
*Critical Care Note
Total Time (30-74mins, 75-104mins- exclusive of procedures): Not Applicable
Update Note
Update Note:
Patient to ED with complaint of upper abdominal mild discomfort and new CORREA. She was admitted here 1 mos ago for elevated LFT's and abdominal discomfort. States abd discomfort feels the same. Today she noticedSOB with stair climbing, talking. ON
exam she is alert and comfortable. VSS, afebrile. Very minimal upper abd. discomfort on exam,. Repeat US normal. Liver enzymes normal. DDimer neg. HRR in mid 60-70's. PUlse ox 100% RA. No evidence to support PE. WIll dishcarge home, she
will follow up with PCP. Given instructions on s/s to return to ED and she is agreeable to plan.
ED Attending Note
-
Portions of this chart may have been created with voice recognition software.� Occasional wrong word or��sound alike� substitutions may have occurred due to the inherent limitations of voice recognition software.
Discharge Plan
Departure
Patient Disposition: Home (Routine Discharge)
Date of Disposition: 12/13/24
Time of Disposition: 17:21
Patient with high blood pressure during this ER visit?: No
Condition: Good
Covid-19: Not Applicable
Discharge Problem:
CORREA (dyspnea on exertion)
Instructions: Shortness of Breath (Dyspnea) (DC)
Prescriptions:
No Action
calcium carbonate [Tums] 200 mg calcium (500 mg) Tablet,Chewable
200 mg PO DAILYPRN PRN (Reason: stomach issues)
Referrals:
[facility] [Outside]
NONE,* [Family Provider] -
Activity Restrictions/Additional Instructions:
Please schedule a follow up appointment with your health care provider this week. Return to the emergency department immediately for any changes in/worsening of your symptoms
Interventions
Interventions:
*Risk Screen - Suicide Last Done: 12/13/24 13:12
*General Assessment Last Done: 12/13/24 14:50
*Neglect/Abuse Screening Last Done: 12/13/24 13:12
*ED- Fall Risk Assessment Last Done: 12/13/24 14:50
*ED COVID-19 Vaccine History Last Done: 12/13/24 14:50
ED- Cardiac Assessment Last Done: 12/13/24 14:50
ED- Pulmonary Assessment Last Done: 12/13/24 14:50
Discharge Date and Time
Print Language: FRISIAN
[2024-12-13 17:14] LABS: D-Dimer < 0.27 ug/mlFEU (0.00-0.50)
== END 2024-12-13 17:36 | disposition home or self-care (01) ==
LOC: EMR 13:00
PROVIDERS: Emergency Medicine; Nurse Practitioner; EMERGENCY PHYSICIAN Student in an Organized Health Care Education/Training Program
DX: R06.09 Other forms of dyspnea (principal); R10.10 Upper abdominal pain, unspecified; Z90.49 Acquired absence of other specified parts of digestive tract
CPT/HCPCS: 99284; 76700; 80053; 81003; 81015; 83690; 84703; 85025; 85379; 87077; 87086; 93005